=== PATIENT | female | born 1935 | race Caucasian/White ===

== ENCOUNTER → 2017-08-09 | Outpatient (RCR) | payer MEDICARE | LOC: PT 07-27 10:50 | PROVIDERS: ATTEND Orthopaedic Surgery | DX: Z96.641 Presence of right artificial hip joint (principal); Z47.1 Aftercare following joint replacement surgery; M16.11 Unilateral primary osteoarthritis, right hip; M25.551 Pain in right hip; M62.81 Muscle weakness (generalized); R26.2 Difficulty in walking, not elsewhere classified | CPT/HCPCS: 97110 ×6; 97161; G8978; G8979 ==

== ENCOUNTER 2017-09-08 09:54 | Outpatient (RCR) | payer MEDICARE | END 2017-09-09 | LOC: PT 09:54 | PROVIDERS: ATTEND Orthopaedic Surgery | DX: Z96.641 Presence of right artificial hip joint (principal); Z47.1 Aftercare following joint replacement surgery; M16.11 Unilateral primary osteoarthritis, right hip; M25.551 Pain in right hip; M54.5 Low back pain; R26.2 Difficulty in walking, not elsewhere classified; M62.81 Muscle weakness (generalized) | CPT/HCPCS: 97110 ×13; G8978; G8979 ==

== ENCOUNTER 2017-09-11 11:09 | Outpatient (RCR) | payer MEDICARE | END 2017-10-09 | LOC: PT 11:09 | PROVIDERS: ATTEND Orthopaedic Surgery | DX: Z96.641 Presence of right artificial hip joint (principal); M54.5 Low back pain; M97.01XD Periprosthetic fracture around internal prosthetic right hip joint, subsequent encounter; M16.11 Unilateral primary osteoarthritis, right hip | CPT/HCPCS: 97110; 97139; G8979; G8980 ==

== ENCOUNTER → 2017-11-09 | Outpatient (CLI) | payer MEDICARE ==
--- NOTE | 2017-11-09 10:41 | Diagnostic Imaging Report ---
PROCEDURE:KNEE LEFT THREE VIEWS TECHNIQUE:AP, lateral and oblique views left knee totaling 4 radiographs INDICATION:Left knee pain COMPARISON:None. FINDINGS: Mild medial and patellofemoral compartment joint space narrowing with subchondral sclerosis and small marginal osteophytes. No effusion. Regional skeleton intact. No effusion. CONCLUSION: Mild right knee osteoarthritis. Dictated by: Justyn Chang M.D. on 11/09/2017 at 10:43 Electronically approved by: Justyn Chang M.D. on 11/09/2017 at 10:43
== END ==
LOC: RAD 09:49
PROVIDERS: ATTEND Family Medicine
DX: M25.562 Pain in left knee (principal)